=== PATIENT | male | born 1990 | race Caucasian/White ===

== ENCOUNTER 2016-09-17 08:21 | Emergency (ER) | payer MEDICAID ==
--- NOTE | 2016-09-17 08:39 | EDPHY ---
HPI/HX/ROS/PE/MDM Narrative: CHIEF COMPLAINT: Depression, SI HPI: This patient is a 26-year-old male with history of schizoaffective disorder who presents to the Emergency Department complaining of gradually increasing thoughts of self-harm. He is followed by [facility] and reports that he stopped taking his medications two weeks prior to arrival. He reports a history of depressive episodes that present with gradually worsening thoughts of suicide. Today, he denies any plan for self-harm but presents voluntarily to prevent worsening of condition. He denies any focal medical complaints. No recent illnesses or infections. Medical history does include a CVA in April 2016 and a mitral valve replacement in July 2016 performed at a hospital in [place]; the patient states that he has had no residual concerns following this procedure. REVIEW OF SYSTEMS: Aside from elements discussed in the HPI, a comprehensive 10-point review of systems was reviewed and is negative. PMH: 1. Schizoaffective disorder - followed by [facility]. 2. CVA in April 3. Mitral valve replacement (July 2016) SOCIAL HISTORY: PHYSICAL EXAM: General:Patient is alert, in no acute distress. ENT:Eyes are normal to inspection. ENT inspection normal. Neck: Normal inspection. Full range of motion. Respiratory:No respiratory distress. Breath sounds normal bilaterally. Cardiovascular: Regular rate and rhythm. Strong peripheral pulses. Normal cap refill. Abdomen:The abdomen is nontender to palpation. There are no peritoneal signs. There are normal bowel sounds. Back: Normal to inspection. No tenderness to palpation. Skin: Normal color. No rash. Warm and dry. Extremities: Normal appearance. Full range of motion. Neuro: Oriented x3. Normal motor function. Normal sensory function. Psychiatric: Admits to suicidal ideation. No homicidal ideation. No hallucinations. (Francis Gamble) ED Course: 26-year-old male with history of schizoaffective disorder presents voluntarily in a depressed state with worsening thoughts of self-harm this historically develop into acute suicidal ideation. He presents requesting mental health evaluation. He has no focal complaints. He is tachycardic at 120 at time of arrival. His exam is normal. Will proceed with labs and urine tox screen for medical clearance prior to mental health evaluation. Urine tox screen is positive for marijuana but otherwise negative. Labs are unremarkable. Patient is medically cleared by ne at 900. 1049: The patient has been evaluated by mental health staff who recommend that the patient be seen at a Crisis Center in order to have his medications refilled to manage his depression. He does not need to be placed on a hold to achieve this. They will arrange for a CC to admit him prior to discharge. ( Francis aGmble) MDM: 1500: The patient is signed out at change of shift by Dr. Gamble. The patient is awaiting placement. 15 30: The patient has placement and will be transferred. Patient is aware the plan. (Jazmine Regan) - Data Points Laboratory Results: Laboratory Results 09/17/16 08:50 09/17/16 08:50 09/17/16 09/17/16 09/17/16 09:00 08:50 08:50 WBC 5.99 10^3/uL 10^3/uL (3.80-9.50) RBC 5.25 10^6/uL 10^6/uL (4.40-6.38) Hgb 16.5 g/dL g/dL (13.7-17.5) Hct 46.8 % % (40.0-51.0) MCV 89.1 fL fL (81.5-99.8) MCH 31.4 pg pg (27.9-34.1) MCHC 35.3 g/dL g/dL (32.4-36.7) RDW 12.7 % % (11.5-15.2) Plt Count 168 10^3/uL 10^3/uL (150-400) MPV 11.7 fL fL (8.7-11.7) Neut % (Auto) 66.5 % % (39.3-74.2) Lymph % (Auto) 20.2 % % (15.0-45.0) [place] % (Auto) 7.8 % % (4.5-13.0) Eos % (Auto) 4.2 % % (0.6-7.6) Baso % (Auto) 0.8 % % (0.3-1.7) Nucleat RBC Rel Count 0.0 % % (0.0-0.2) Absolute Neuts (auto) 3.98 10^3/uL 10^3/uL (1.70-6.50) Absolute Lymphs (auto) 1.21 10^3/uL 10^3/uL (1.00-3.00) Absolute Monos (auto) 0.47 10^3/uL 10^3/uL (0.30-0.80) Absolute Eos (auto) 0.25 10^3/uL 10^3/uL (0.03-0.40) Absolute Basos (auto) 0.05 10^3/uL 10^3/uL (0.02-0.10) Absolute Nucleated RBC 0.00 10^3/uL 10^3/uL (0-0.01) Immature Gran % 0.5 % % (0.0-1.1) Immature Gran # 0.03 10^3/uL 10^3/uL (0.00-0.10) Sodium 140 mEq/L mEq/L (134-144) Potassium 4.2 mEq/L mEq/L (3.5-5.2) Chloride 106 mEq/L mEq/L (97-110) Carbon Dioxide 23 mEq/l mEq/l (22-31) Anion Gap 11 mEq/L mEq/L (8-16) BUN 24 mg/dL H mg/dL (7-23) Creatinine 1.0 mg/dL mg/dL (0.7-1.3) Estimated GFR > 60 Glucose 110 mg/dL H mg/dL (70-100) Calcium 9.6 mg/dL mg/dL (8.5-10.4) Urine Opiates Screen NEGATIVE (NEGATIVE) Urine Barbiturates NEGATIVE (NEGATIVE) Ur Phencyclidine Scrn NEGATIVE (NEGATIVE) Ur Amphetamine Screen NEGATIVE (NEGATIVE) U Benzodiazepines Scrn NEGATIVE (NEGATIVE) Urine Cocaine Screen NEGATIVE (NEGATIVE) U Marijuana (THC) Screen NON-NEGATIVE H (NEGATIVE) General Time Seen by Provider: 09/17/16 08:30 Initial Vital Signs: Initial Vital Signs Temperature (C) 36.9 C 09/17/16 08:22 Heart Rate 120 H 09/17/16 08:22 Respiratory Rate 16 09/17/16 08:22 Blood Pressure 134/85 H 09/17/16 08:22 O2 Sat (%) 97 09/17/16 08:22 O2 Delivery Mode Room Air Allergies/Adverse Reactions: No Known Allergies Allergy (Verified 12/02/14 04:10) Home Medications: Medication Instructions Recorded NK [No Known Home Meds] 12/02/14 Departure - Departure Disposition: Home, Routine, Self-Care Clinical Impression: Depression Qualifiers: Depression Type: other depression Qualified Code(s): F32.89 - Other specified depressive episodes Schizoaffective disorder Qualifiers: Schizoaffective disorder type: bipolar Qualified Code(s): F25.0 - Schizoaffective disorder, bipolar type Condition: Good Instructions: Depression (ED), Schizoaffective Disorder (ED) Additional Instructions: Present directly to the Crisis Center as discussed. Return to the Emergency Department immediately with thoughts of suicide, harming others, uncontrollable anxiety, or for other serious concerns. Referrals: [facility] [Other] - As per Instructions [facility],. [Clinic] - As per Instructions Report Scribed for: Francis Gamble Report Scribed by: Monique Gomez Date of Report: 09/17/16 Time of Report: 08:39 Physician Review and Approval Statement: Portions of this note were transcribed by an ED scribe. I personally performed the history, physical exam, and medical decision making; and confirm the accuracy of the information in the transcribed note.
[2016-09-17 09:03] LABS: % IMMATURE GRANULYOCYTES 0.5 % (0.0-1.1); ABSOLUTE IMMATURE GRANULOCYTES 0.03 10^3/uL (0.00-0.10); ADD DIFF? NO; ADD MORPH? NO; ADD SCAN? NO; ATYPICAL LYMPHOCYTE FLAG 10 (0-99); FRAGMENT RBC FLAG 0 (0-99); HEMATOCRIT 46.8 % (40.0-51.0); HEMOGLOBIN 16.5 g/dL (13.7-17.5); LEFT SHIFT FLG 10 (0-99); LIPEMIA HEMOLYSIS FLAG 90 (0-99); MEAN CELL HEMOGLOBIN 31.4 pg (27.9-34.1); MEAN CELL HEMOGLOBIN CONCENTR. 35.3 g/dL (32.4-36.7); MEAN CELL VOLUME 89.1 fL (81.5-99.8); MEAN PLATELET VOLUME 11.7 fL (8.7-11.7); PLATELET CLUMPS FLAG 0 (0-99); PLATELET COUNT 168 10^3/uL (150-400); RED BLOOD CELL COUNT 5.25 10^6/uL (4.40-6.38); RED CELL DISTRIBUTION WIDTH 12.7 % (11.5-15.2)
[2016-09-17 09:20] LABS: ANION GAP 11 mEq/L (8-16); CALCIUM 9.6 mg/dL (8.5-10.4); CARBON DIOXIDE 23 mEq/l (22-31); CHLORIDE 106 mEq/L (97-110); GLOMERULAR FILTRATION RATE > 60; GLUCOSE 110 mg/dL (70-100); POTASSIUM 4.2 mEq/L (3.5-5.2); SODIUM 140 mEq/L (134-144)
[2016-09-17 15:25] VITALS: BP 129/75; PULSE 110; RESP 14; TEMP 97.7; O2SAT 98
== END 2016-09-17 15:44 | disposition home or self-care (01) ==
DX: F32.89 Other specified depressive episodes (principal); F25.0 Schizoaffective disorder, bipolar type
CPT/HCPCS: 80305